=== PATIENT | male | born 1975 | race African-American/Black ===

== ENCOUNTER 2019-02-22 23:41 | Emergency (ER) | payer MEDICAID, OTHER ==
[~2019-02-22] VITALS: Ht 185.4 cm; Wt 113.4 kg
[~2019-02-22 23:41] MED LIST: ASPI300S4 PO; ASPI81CH43 PO; ATEN-60 PO; Atenolol PO; HYDR12.56 PO; Hctz PO; SIMV-8 PO
[2019-02-23 00:48] LABS: Hematocrit 47.3 % (41.0-53.0); Hemoglobin 15.8 g/dL (13.5-17.5); Mean Corpuscular Hemoglobin 28.1 pg (28.0-32.0); Mean Corpuscular Hgb Conc. 33.3 g/dL (32.0-36.0); Mean Corpuscular Volume 84.3 fL (80.0-100.0); Platelet Count (auto) 224 10^3/uL (140-450); Red Blood Cells 5.61 10^6/uL (4.5-5.90); Red Cell Distribution Width 14.1 % (11.8-14.3); White Blood Cell 7.5 10^3/uL (4.4-10.8)
[2019-02-23 01:05] LABS: Band Neutrophils % (manual) 0; Basophils % (manual) 0 (0.0-2.0); Blast Cells 0; Metamyelocytes % 0; Myelocytes % 0; Promyelocytes % 0; Reactive Lymphocytes 0
[2019-02-23 01:07] LABS: Chloride 108 mmol/L (98-107); Potassium 3.5 mmol/L (3.5-5.1); Sodium 141 mmol/L (136-145)
[2019-02-23 01:12] LABS: Albumin 3.7 g/dL (3.4-5.0); Anion Gap 6 (5-15); Carbon Dioxide 27 mmol/L (21-32); Glucose 112 mg/dL (74-106)
[2019-02-23 01:17] LABS: Alanine Aminotransferase 43 U/L (16-61); Alkaline Phosphatase 50 U/L (45-117); Aspartate Aminotransferase 26 U/L (15-37); Bilirubin, Total 0.4 mg/dL (0.2-1.0); GFR African American 80 mL/min; GFR Non-African American 66 mL/min; Total Protein 7.2 g/dL (6.4-8.2)
[2019-02-23 01:21] LABS: BUN/Creatinine Ratio 12.7; Blood Urea Nitrogen 16 mg/dL (7-18)
[2019-02-23 01:50] LABS: Eosinophils % (manual) 2 (0-7); Lymphocytes % (manual) 46 (10.0-50.0); Monocytes % (manual) 7 (0-12)
[2019-02-23 03:00] VITALS: BP 142/91
[2019-02-23] MEDS ORDERED: cloNIDine HCL 0.1 MG TAB PO ONE ×2 (03:15)
== END 2019-02-23 03:59 | disposition home or self-care (01) ==
LOC: ER 23:46
DX: I16.0 Hypertensive urgency (principal); E78.5 Hyperlipidemia, unspecified; F17.210 Nicotine dependence, cigarettes, uncomplicated; Z88.0 Allergy status to penicillin; Z79.82 Long term (current) use of aspirin; Z79.899 Other long term (current) drug therapy
CPT/HCPCS: 36415; 80053; 84484; 85007; 85025; 85027; 93005